=== PATIENT | female | born 1935 | race Caucasian/White ===

== ENCOUNTER 2019-01-29 10:18 | Inpatient (IN) ==
[2019-01-29 11:12] LABS: Basophils # 0.1 10*3/uL (0.0-0.2); Basophils % 1.4 % (0.0-0.8); Eosinophils # 0.5 10*3/uL (0.0-0.87); Eosinophils % 6.3 % (0.00-10.9); Hematocrit 38.4 VOL% (35.7-47.0); Immature Granulocytes % 0.3 %; Immature Granulocytes Absolute 0.02 #; Lymphocytes # 2.2 10*3/uL (1.4-4.0); Lymphocytes % 31.1 % (21.3-54.2); Mean Corpuscular HGB Conc 31.3 GM/DL (32-36); Mean Corpuscular Volume 93.2 FL (87-102); Mean Platelet Volume 11.3 FL (9.6-12.0); Monocytes % 7.3 % (1.7-12.7); Neutrophils % 53.6 % (38.7-73.9); Platelet Count 235 T/CUMM (130-400); Red Blood Count 4.12 MC/CUMM (3.8-5.5); Red Cell Distribution Width 15.6 % (9.3-17.3); White Blood Count 7.2 T/CUMM (4-12)
[2019-01-29 11:18] LABS: INR 0.9; PT Patient Result 10.2 SECS; Partial Thromboplastin Time < 21.0 SECS (0-40)
[2019-01-29 11:22] LABS: Alanine Aminotransferase < 9 U/L (13-56); Albumin 2.9 G/DL (3.4-5.0); Alkaline Phosphatase 106 U/L (45-117); Aspartate Amino Transferase 12 U/L (0-37); Blood Urea Nitrogen 19 MG/DL (7-18); Calcium 9.8 MG/DL (8.5-10.1); Glucose 114 MG/DL (74-106); Osmolality,Calculated 279.5 MOS/KG (273-304); Total Protein 6.8 G/DL (6.4-8.3)
[2019-01-29 11:53] LABS: Apearance,Urine CLOUDY (Clear); Bacteria,Urine Few /HPF (Few); Bilirubin,Urine Negative (Negative); Blood, Urine Small mg/dL (Negative); Glucose,Urine (UA) Negative (Negative); Ketones,Urine Negative (Negative); Mucus,Urine Occasional /LPF (Occasional); Nitrite,Urine Positive (Negative); Protein,Urine Negative; RBC,Urine 3 /HPF (0-4); Squamous Epithelial Cell,Urine Occasional /HPF (0-10); Urine Color Yellow (Yellow); Urine Specific Gravity 1.013 (1.001-1.035); Urine Urobilinogen < 2.0 EU/DL (0.2-1.0); WBC,Urine 108 /HPF (0-6)
[2019-01-29] MEDS ORDERED: cefTRIAXone 1,000 MG in SODIUM CHLORIDE 0.9% 100 ML IV STA (12:19)
[2019-01-29] MEDS ORDERED: ONDANSETRON 4 MG/2 ML VIAL IV PRN (12:21)
[2019-01-29] MEDS ORDERED: LABETALOL 20 MG/4 ML SYRINGE IV PRN (12:21)
[2019-01-29] MEDS ORDERED: MORPHINE 4 MG/1 ML VIAL IV PRN (12:29)
[2019-01-29] MEDS: HEPARIN DRIP 25,000 UNITS/500 ML PREMIX IV SCH (13:05)
[2019-01-29] MEDS: DEXTROSE 5% NACL 0.45% 1,000 ML IV SCH (13:19)
[2019-01-29] MEDS: FAMOTIDINE 20 MG/2 ML VIAL IV SCH (13:25)
[2019-01-29 15:37] LABS: Barbiturates Screen,Urine Negative (Negative); Benzodiazepines Screen,Urine Negative (Negative); Cannabinoid Screen,Urine Negative (Negative); Opiate Screen,Urine Negative (Negative); Phencyclidine Screen,Urine Negative (Negative)
[2019-01-29] MEDS ORDERED: HEPARIN 5,000 UNIT/1 ML VIAL IV ONE (16:39)
[2019-01-30] MEDS: FAMOTIDINE 20 MG/2 ML VIAL IV SCH ×2 (00:29→13:57)
[2019-01-30] MEDS: DEXTROSE 5% NACL 0.45% 1,000 ML IV SCH ×2 (03:30→16:50)
[2019-01-30 05:12] LABS: Basophils # 0.1 10*3/uL (0.0-0.2); Basophils % 0.6 % (0.0-0.8); Eosinophils # 0.3 10*3/uL (0.0-0.87); Eosinophils % 3.4 % (0.00-10.9); Hematocrit 36.6 VOL% (35.7-47.0); Hemoglobin 11.6 GM/DL (12.0-16.0); Immature Granulocytes % 0.3 %; Immature Granulocytes Absolute 0.03 #; Lymphocytes # 2.4 10*3/uL (1.4-4.0); Lymphocytes % 25.5 % (21.3-54.2); Mean Corpuscular HGB Conc 31.7 GM/DL (32-36); Mean Corpuscular Volume 92.2 FL (87-102); Mean Platelet Volume 11.5 FL (9.6-12.0); Monocytes % 7.7 % (1.7-12.7); Neutrophils % 62.5 % (38.7-73.9); Platelet Count 233 T/CUMM (130-400); Red Blood Count 3.97 MC/CUMM (3.8-5.5); Red Cell Distribution Width 15.2 % (9.3-17.3); White Blood Count 9.3 T/CUMM (4-12)
[2019-01-30 05:19] LABS: Alanine Aminotransferase < 9 U/L (13-56); Albumin 2.7 G/DL (3.4-5.0); Alkaline Phosphatase 95 U/L (45-117); Aspartate Amino Transferase 13 U/L (0-37); Blood Urea Nitrogen 15 MG/DL (7-18); Calcium 9.5 MG/DL (8.5-10.1); Glucose 158 MG/DL (74-106); Osmolality,Calculated 278.7 MOS/KG (273-304); Total Protein 6.6 G/DL (6.4-8.3)
[2019-01-30 05:32] LABS: Risk Ratio 4.41; VLDL CHOLESTEROL 14.8 MG/DL
[2019-01-30] MEDS ORDERED: ASPIRIN 325 MG TABLET PO SCH (09:00)
[2019-01-30] MEDS: cefTRIAXone 1,000 MG in SYRINGE 1 EACH IV SCH (09:23)
[2019-01-30] MEDS: ASPIRIN 325 MG TABLET PO SCH (09:30)
[2019-01-30] MEDS: SOTALOL 80 MG TABLET PO SCH ×2 (09:30→21:56)
[2019-01-30] MEDS: HEPARIN DRIP 25,000 UNITS/500 ML PREMIX IV SCH (20:36)
[2019-01-31] MEDS: FAMOTIDINE 20 MG/2 ML VIAL IV SCH ×2 (01:09→14:47)
[2019-01-31] MEDS: DEXTROSE 5% NACL 0.45% 1,000 ML IV SCH ×2 (04:30→19:11)
[2019-01-31 07:16] LABS: Alanine Aminotransferase < 6 U/L (13-56); Albumin 2.3 G/DL (3.4-5.0); Alkaline Phosphatase 88 U/L (45-117); Aspartate Amino Transferase 11 U/L (0-37); Blood Urea Nitrogen 13 MG/DL (7-18); Calcium 9.1 MG/DL (8.5-10.1); Glucose 123 MG/DL (74-106); Total Protein 5.9 G/DL (6.4-8.3)
[2019-01-31] MEDS ORDERED: ENOXAPARIN 40 MG/0.4 ML SYRINGE SUBCUT ONE (08:01)
[2019-01-31] MEDS: cefTRIAXone 1,000 MG in SYRINGE 1 EACH IV SCH (09:07)
[2019-01-31] MEDS: SOTALOL 80 MG TABLET PO SCH ×2 (09:12→21:42)
[2019-01-31] MEDS: ASPIRIN 325 MG TABLET PO SCH (09:12)
[2019-02-01] MEDS: FAMOTIDINE 20 MG/2 ML VIAL IV SCH ×2 (01:37→14:36)
[2019-02-01 05:40] LABS: Alanine Aminotransferase < 9 U/L (13-56); Albumin 2.2 G/DL (3.4-5.0); Alkaline Phosphatase 87 U/L (45-117); Aspartate Amino Transferase 13 U/L (0-37); Blood Urea Nitrogen 9 MG/DL (7-18); Calcium 9.1 MG/DL (8.5-10.1); Glucose 100 MG/DL (74-106); Osmolality,Calculated 271.8 MOS/KG (273-304); Total Protein 5.9 G/DL (6.4-8.3)
[2019-02-01] MEDS: cefTRIAXone 1,000 MG in SYRINGE 1 EACH IV SCH (09:45)
[2019-02-01] MEDS: SOTALOL 80 MG TABLET PO SCH ×2 (09:46→20:58)
[2019-02-01] MEDS: ASPIRIN 325 MG TABLET PO SCH (09:46)
[2019-02-01] MEDS: POTASSIUM CHLORIDE RIDER 10 MEQ in PREMIX 1 EACH IV SCH ×2 (09:47→10:47)
[2019-02-01] MEDS: DEXT 5% NACL 0.45% KCL 20 MEQ 20 MEQ/1,000 ML BAG IV SCH ×2 (09:50→22:22)
[2019-02-01] MEDS ORDERED: ASPIRIN 325 MG TABLET PO SCH (17:40)
[2019-02-01] MEDS: DEXTROSE 5% NACL 0.45% 1,000 ML IV SCH (19:13)
[2019-02-02] MEDS: FAMOTIDINE 20 MG/2 ML VIAL IV SCH (00:07)
[2019-02-02 05:20] LABS: Basophils # 0.1 10*3/uL (0.0-0.2); Basophils % 0.9 % (0.0-0.8); Eosinophils # 0.3 10*3/uL (0.0-0.87); Eosinophils % 3.5 % (0.00-10.9); Hematocrit 33.3 VOL% (35.7-47.0); Hemoglobin 10.8 GM/DL (12.0-16.0); Immature Granulocytes % 0.3 %; Immature Granulocytes Absolute 0.02 #; Lymphocytes # 1.8 10*3/uL (1.4-4.0); Lymphocytes % 22.8 % (21.3-54.2); Mean Corpuscular HGB Conc 32.4 GM/DL (32-36); Mean Corpuscular Volume 91.5 FL (87-102); Mean Platelet Volume 10.9 FL (9.6-12.0); Monocytes % 9.1 % (1.7-12.7); Neutrophils % 63.4 % (38.7-73.9); Platelet Count 211 T/CUMM (130-400); Red Blood Count 3.64 MC/CUMM (3.8-5.5)
[2019-02-02 05:53] LABS: Albumin 2.3 G/DL (3.4-5.0); Bilirubin,Total 0.8 MG/DL (0.2-1.0); Calcium 9.3 MG/DL (8.5-10.1); Osmolality,Calculated 269.1 MOS/KG (273-304); Total Protein 6.1 G/DL (6.4-8.3)
[2019-02-02 08:35] VITALS: BP 154/67
[2019-02-02] MEDS: SOTALOL 80 MG TABLET PO SCH (08:43)
[2019-02-02] MEDS ORDERED: CEFUROXIME 250 MG TABLET PO SCH (09:00)
[2019-02-02] MEDS ORDERED: ASPIRIN EC 81 MG TABLET PO SCH (09:00)
[2019-02-02] MEDS ORDERED: FAMOTIDINE 20 MG TABLET PO SCH (21:00)
== END 2019-02-02 11:00 | DRG 64 ==
LOC: EDBD → EDUNIT# → N.ED 10:18 → N.EDINP 12:21 → N.4E 13:55
PROVIDERS: ADMIT Family Medicine; ATTEND Family Medicine